=== PATIENT | female | born 1995 | race Caucasian/White ===

== ENCOUNTER 2018-01-31 13:03 | Observation (INO) | payer OTHER ==
[~2018-01-31] VITALS: Ht 157 cm; Wt 74.8 kg
[2018-02-03 23:39] VITALS: BP 110/68
[2018-02-03] MEDS ORDERED: PREN1TAB80 PO (23:43)
== END 2018-02-04 07:25 | disposition home or self-care (01) ==
LOC: 4S 02-03 22:56
PROVIDERS: ADMIT Obstetrics & Gynecology; ATTEND Obstetrics & Gynecology
DX: O62.9 Abnormality of forces of labor, unspecified (principal); O26.893 Other specified pregnancy related conditions, third trimester; R10.30 Lower abdominal pain, unspecified; O26.853 Spotting complicating pregnancy, third trimester; Z3A.39 39 weeks gestation of pregnancy
CPT/HCPCS: 59025; G0378 ×2

== ENCOUNTER 2018-02-05 08:15 | Inpatient (IN) | payer OTHER ==
[~2018-02-05] VITALS: Ht 151 cm; Wt 74.8 kg
[~2018-02-05 08:15] MED LIST: PREN1TAB80 PO
[2018-02-05 08:53] VITALS: BP 139/82
[2018-02-05] MEDS ORDERED: OXYTOCIN 30 UNITS/LACT RINGERS 500 ML IV ONE (09:49)
[2018-02-05] MEDS ORDERED: RINGERS SOLUTION,LACTATED 1,000 ML IV PRN (09:49)
[2018-02-05] MEDS ORDERED: OXYGEN THERAPY IH SCH (10:00)
[2018-02-05] MEDS ORDERED: METOCLOPRAMIDE HCL 5 MG/ML 2 ML VIAL IVP PRN (10:00)
[2018-02-05] MEDS ORDERED: CITRIC ACID/SODIUM CITRATE 30 ML SOLUTION UDCUP PO PRN (10:00)
[2018-02-05] MEDS ORDERED: AMPICILLIN SODIUM 2 GM/NS 100 ML IV ONE (10:00)
[2018-02-05 10:21] LABS: BASOPHILS % (AUTO) 0.4 % (0.0-2.0); EOSINOPHILS % (AUTO) 0.2 % (1.0-6.0); HEMATOCRIT 35.7 % (36-46); HEMOGLOBIN 12.6 g/dL (12.0-16.0); LYMPHOCYTES # (AUTO) 2.9 K/uL (1.0-4.8); MEAN CORPUSCULAR HEMOGLOBIN 30.5 pg (26.0-34.0); MEAN CORPUSCULAR HGB CONC 35.4 G/dL (31.0-37.0); MEAN CORPUSCULAR VOLUME 86 fL (80-100); MONOCYTES # (AUTO) 0.6 K/uL (0.1-1.0); MONOCYTES % (AUTO) 4.9 % (2.0-9.0); NEUTROPHILS # (AUTO) 8.1 K/uL (1.8-7.7); NEUTROPHILS % (AUTO) 69.5 % (40.0-70.0); PLATELET COUNT (AUTO)-OB 139 K/uL (150-450); RED BLOOD CELL COUNT(AUTO) 4.14 MIL/uL (4.00-5.20); RED CELL DISTRIBUTION WIDTH 13.8 % (11.5-14.5)
[2018-02-05] MEDS ORDERED: ROPIVACAINE HCL/PF 0.2% 100 ML ED ONE ×2 (10:34→19:55)
[2018-02-05] MEDS ORDERED: LIDOCAINE HCL/PF 2% 5 ML VIAL ONE ×2 (10:34→13:41)
[2018-02-05] MEDS: RINGERS SOLUTION,LACTATED 1,000 ML IV SCH ×3 (11:24→19:30)
[2018-02-05] MEDS: FentaNYL CITRATE-PF 100 MCG/2 ML VIAL IVP PRN ×4 (11:45→13:41)
[2018-02-05] MEDS: AMPICILLIN SODIUM 1 GM/NS 50 ML IV SCH ×3 (13:41→22:27)
[2018-02-05] MEDS ORDERED: LIDOCAINE HCL/PF 1% 30 ML VIAL ONE (19:58)
[2018-02-05] MEDS ORDERED: FentaNYL CITRATE-PF 100 MCG/2 ML VIAL ONE (20:31)
[2018-02-06] MEDS ORDERED: OXYTOCIN 30 UNITS/LACT RINGERS 500 ML IV PRN (01:34)
[2018-02-06] MEDS ORDERED: MEASLES/MUMPS/RUBELLA VACCINE, LIVE 0.5 ML/VIAL SQ ONE (01:45)
[2018-02-06] MEDS ORDERED: OxyCODONE HCL/ACETAMINOPHEN 5-325 MG TABLET PO PRN (01:45)
[2018-02-06] MEDS ORDERED: LANOLIN 7 GM OINTMENT TP PRN (01:45)
[2018-02-06] MEDS ORDERED: RINGERS SOLUTION,LACTATED 1,000 ML IV ONE (01:45)
[2018-02-06] MEDS ORDERED: GLYCERIN/WITCH HAZEL LEAF 40 PADS JAR TP PRN (01:45)
[2018-02-06] MEDS ORDERED: BENZOCAINE 20%/MENTHOL 56 GM SPRAY CANISTER TP PRN (01:45)
[2018-02-06] MEDS: IBUPROFEN 600 MG TABLET PO PRN ×4 (02:41→21:54)
[2018-02-06] MEDS: OxyCODONE HCL/ACETAMINOPHEN 5-325 MG TABLET PO PRN ×2 (05:04→18:56)
[2018-02-06] MEDS: MAGNESIUM HYDROXIDE SUSPENSION 30 ML UDCUP PO SCH ×2 (09:04→20:59)
[2018-02-07] MEDS: OxyCODONE HCL/ACETAMINOPHEN 5-325 MG TABLET PO PRN (00:16)
[2018-02-07] MEDS: IBUPROFEN 600 MG TABLET PO PRN (08:13)
[2018-02-07] MEDS: MAGNESIUM HYDROXIDE SUSPENSION 30 ML UDCUP PO SCH (08:13)
[2018-02-07] MEDS ORDERED: IBUP-2071 PO (09:01)
[2018-02-07] MEDS ORDERED: DSS100 PO (09:03)
== END 2018-02-07 10:30 | disposition home or self-care (01) | DRG 775 ==
LOC: OBSVTOIN 08:15 → 4S 08:15
PROVIDERS: ADMIT Obstetrics & Gynecology; ATTEND Obstetrics & Gynecology
PROC: 10D07Z6 Extraction of Products of Conception, Vacuum, Via Natural or Artificial Opening (ICD-10-PCS; principal; 2018-02-06)
PROC: 0KQM0ZZ Repair Perineum Muscle, Open Approach (ICD-10-PCS; 2018-02-06)
PROC: 3E0R3BZ Introduction of Anesthetic Agent into Spinal Canal, Percutaneous Approach (ICD-10-PCS; 2018-02-06)
PROC: 00HU33Z Insertion of Infusion Device into Spinal Canal, Percutaneous Approach (ICD-10-PCS; 2018-02-06)
PROC: 3E0234Z Introduction of Serum, Toxoid and Vaccine into Muscle, Percutaneous Approach (ICD-10-PCS; 2018-02-06)
DX: O99.824 Streptococcus B carrier state complicating childbirth (principal); Z23 Encounter for immunization; Z37.0 Single live birth; O70.1 Second degree perineal laceration during delivery; Z3A.39 39 weeks gestation of pregnancy
CPT/HCPCS: J0290; J2590; J2795; J3010; J3490; J7120

== ENCOUNTER 2020-08-13 21:59 | Inpatient (IN) | payer OTHER ==
[~2020-08-13] VITALS: Ht 149.9 cm; Wt 67.1 kg
[~2020-08-13 21:59] MED LIST changes: +DSS100 PO; +IBUP-2071 PO
[2020-08-13] MEDS ORDERED: CITRIC ACID/SODIUM CITRATE 30 ML SOLUTION UDCUP PO PRN (23:00)
[2020-08-13] MEDS ORDERED: MISOPROSTOL 25 MCG TABLET PO SCH (23:00)
[2020-08-13] MEDS ORDERED: METOCLOPRAMIDE HCL 5 MG/ML 2 ML VIAL IVP PRN (23:00)
[2020-08-13] MEDS ORDERED: FentaNYL CITRATE-PF 100 MCG/2 ML VIAL IVP PRN (23:00)
[2020-08-13] MEDS ORDERED: RINGERS SOLUTION,LACTATED 1,000 ML IV PRN (23:00)
[2020-08-13 23:06] VITALS: BP 101/59
[2020-08-13 23:59] LABS: BASOPHILS % (AUTO) 0.5 % (0.0-2.0); EOSINOPHILS % (AUTO) 0.3 % (1.0-6.0); HEMATOCRIT 28.9 % (36-46); HEMOGLOBIN 9.8 g/dL (12.0-16.0); LYMPHOCYTES # (AUTO) 2.4 K/uL (1.0-4.8); LYMPHOCYTES % (AUTO) 30.4 % (22.0-44.0); MEAN CORPUSCULAR HEMOGLOBIN 28.5 pg (26.0-34.0); MEAN CORPUSCULAR HGB CONC 33.9 G/dL (31.0-37.0); MEAN CORPUSCULAR VOLUME 84 fL (80-100); MONOCYTES # (AUTO) 0.5 K/uL (0.1-1.0); MONOCYTES % (AUTO) 6.8 % (2.0-9.0); NEUTROPHILS # (AUTO) 4.9 K/uL (1.8-7.7); PLATELET COUNT (AUTO)-OB 175 K/uL (150-450); RED BLOOD CELL COUNT(AUTO) 3.44 MIL/uL (4.00-5.20); RED CELL DISTRIBUTION WIDTH 14.1 % (11.5-14.5)
[2020-08-14] MEDS ORDERED: INFLUENZA VIRUS VACCINE QVS 2020-21 (6MO+)/PF 60 MCG/0.5 ML SYRINGE IM ONE (00:45)
[2020-08-14 01:32] LABS: COVID AG,FIA SOURCE NASOPHARYNGEAL
[2020-08-14] MEDS: RINGERS SOLUTION,LACTATED 1,000 ML IV SCH ×3 (03:40→09:42)
[2020-08-14] MEDS ORDERED: OXYGEN THERAPY IH SCH (08:00)
[2020-08-14] MEDS ORDERED: OXYTOCIN 30 UNITS/LACT RINGERS 500 ML IV ONE ×2 (08:30→17:30)
[2020-08-14] MEDS ORDERED: LIDOCAINE/PF 1% 30 ML VIAL INJ PRN ×2 (08:30→17:30)
[2020-08-14] MEDS ORDERED: OXYTOCIN 30 UNITS/LACT RINGERS 500 ML IV PRN (08:30)
[2020-08-14] MEDS ORDERED: METHYLERGONOVINE MALEATE 0.2 MG/ML VIAL IM PRN (08:30)
[2020-08-14] MEDS ORDERED: ROPIVACAINE HCL/PF 0.2% 100 ML ED ONE (09:11)
[2020-08-14] MEDS ORDERED: DiphenhydrAMINE HCL 50 MG/ML VIAL IVP PRN (09:45)
[2020-08-14] MEDS ORDERED: ONDANSETRON HCL 4 MG/2 ML VIAL IVP PRN (09:45)
[2020-08-14] MEDS ORDERED: NALBUPHINE HCL 10 MG/ML VIAL IVP PRN (09:45)
[2020-08-14] MEDS ORDERED: ROPIVACAINE HCL/PF 0.2% 100 ML ED PRN (09:45)
[2020-08-14] MEDS ORDERED: OxyCODONE HCL/ACETAMINOPHEN 5-325 MG TABLET PO PRN ×2 (17:30)
[2020-08-14] MEDS ORDERED: LANOLIN 7 GM OINTMENT TP PRN (17:30)
[2020-08-14] MEDS ORDERED: BENZOCAINE 20%/MENTHOL 56 GM SPRAY CANISTER TP PRN (17:30)
[2020-08-14] MEDS ORDERED: GLYCERIN/WITCH HAZEL LEAF 40 PADS JAR TP PRN (17:30)
[2020-08-14] MEDS: IBUPROFEN 800 MG TABLET PO PRN (18:12)
[2020-08-14] MEDS: MAGNESIUM HYDROXIDE SUSPENSION 30 ML UDCUP PO PRN (22:25)
[2020-08-15] MEDS: IBUPROFEN 800 MG TABLET PO PRN ×2 (00:24→08:37)
[2020-08-15 06:55] LABS: BASOPHILS % (AUTO) 0.6 % (0.0-2.0); EOSINOPHILS % (AUTO) 0.3 % (1.0-6.0); HEMOGLOBIN 10.2 g/dL (12.0-16.0); LYMPHOCYTES # (AUTO) 2.3 K/uL (1.0-4.8); LYMPHOCYTES % (AUTO) 24.2 % (22.0-44.0); MEAN CORPUSCULAR HEMOGLOBIN 28.5 pg (26.0-34.0); MEAN CORPUSCULAR HGB CONC 33.9 G/dL (31.0-37.0); MEAN CORPUSCULAR VOLUME 84 fL (80-100); MONOCYTES # (AUTO) 0.5 K/uL (0.1-1.0); MONOCYTES % (AUTO) 5.7 % (2.0-9.0); NEUTROPHILS # (AUTO) 6.5 K/uL (1.8-7.7); NEUTROPHILS % (AUTO) 69.2 % (40.0-70.0); PLATELET COUNT (AUTO)-OB 165 K/uL (150-450); RED BLOOD CELL COUNT(AUTO) 3.57 MIL/uL (4.00-5.20); RED CELL DISTRIBUTION WIDTH 14.2 % (11.5-14.5)
[2020-08-15] MEDS: MAGNESIUM HYDROXIDE SUSPENSION 30 ML UDCUP PO PRN (08:36)
[2020-08-15] MEDS ORDERED: DOCU-275 PO (09:15)
[2020-08-15] MEDS ORDERED: FERR-89 PO (09:19)
== END 2020-08-15 16:55 | disposition home or self-care (01) | DRG 807 ==
LOC: OBSVTOIN 21:59 → 4S 21:59
PROVIDERS: ADMIT Obstetrics & Gynecology Obstetrics; ATTEND Obstetrics & Gynecology Obstetrics
PROC: 10E0XZZ Delivery of Products of Conception, External Approach (ICD-10-PCS; principal; 2020-08-14)
PROC: 10907ZC Drainage of Amniotic Fluid, Therapeutic from Products of Conception, Via Natural or Artificial Opening (ICD-10-PCS; 2020-08-14)
PROC: 0HQ9XZZ Repair Perineum Skin, External Approach (ICD-10-PCS; 2020-08-14)
PROC: 3E0R3BZ Introduction of Anesthetic Agent into Spinal Canal, Percutaneous Approach (ICD-10-PCS; 2020-08-14)
PROC: 00HU33Z Insertion of Infusion Device into Spinal Canal, Percutaneous Approach (ICD-10-PCS; 2020-08-14)
PROC: 3E02340 Introduction of Influenza Vaccine into Muscle, Percutaneous Approach (ICD-10-PCS; 2020-08-14)
DX: O70.0 First degree perineal laceration during delivery (principal); Z37.0 Single live birth; Z3A.40 40 weeks gestation of pregnancy; Z20.828 Contact with and (suspected) exposure to other viral communicable diseases; Z23 Encounter for immunization
CPT/HCPCS: 86850; 86900; 86901; 87426; 90686; J2590; J2795; J7120